=== PATIENT | male | born 1995 | race Caucasian/White ===

== ENCOUNTER 2020-11-11 19:31 | Emergency (ER) | payer OTHER ==
[~2020-11-11] VITALS: Ht 182.9 cm; Wt 74.8 kg
--- NOTE | 2020-11-11 19:40 | NUR ---
C/O L MIDDLE FINGER AVULSION WHILE WASHING DISHES. TDAP NOT UPDATED. MINIMAL BLEEDING
--- NOTE | 2020-11-11 20:03 | NUR ---
NINOSKA PETTY at bed side
[2020-11-11] MEDS ORDERED: GELATIN SPONGE,ABSORBABLE 1 SPONGE SPONGE TP ONE ×2 (20:05→20:30)
[2020-11-11] MEDS ORDERED: TDAP [DIPH/PERTUSSIS/TET] 0.5 ML VIAL IM ONE ×2 (20:10→20:30)
[2020-11-11 20:38] VITALS: BP 119/79
--- NOTE | 2020-11-11 20:44 | NUR ---
PT IS MEDICALLY STABLE FOR D/C. DRESSING ON R MIDDLE FINGER REMAINED C/D/I. NO BLEEDING NOTED. Patient discharged to home in stable condition. Written and verbal after care instructions given. Patient verbalizes understanding of instruction.
== END 2020-11-11 20:45 | disposition home or self-care (01) ==
LOC: ER 19:33
DX: S61.203A Unspecified open wound of left middle finger without damage to nail, initial encounter (principal); W26.0XXA Contact with knife, initial encounter; Y93.89 Activity, other specified; Y92.89 Other specified places as the place of occurrence of the external cause; Y99.8 Other external cause status
CPT/HCPCS: 90715

== ENCOUNTER 2020-11-15 14:19 | Emergency (ER) | payer OTHER ==
[~2020-11-15] VITALS: Ht 182.9 cm; Wt 74.8 kg
[2020-11-15 14:30] VITALS: BP 128/71
--- NOTE | 2020-11-15 14:33 | NUR ---
The patient bibs for left middle finger wound check. The patient is alert and oriented x4. Denies pain. Denies any numbness/tingling. Will continue to monitor the patient.
[2020-11-15] MEDS ORDERED: BACI/NEOM/POLY B OINT PKT 1 UDPKT PACKET TP ONE (16:30)
[2020-11-15] MEDS ORDERED: BACI/NEOM/POLY B OINT PKT 1 UDPKT PACKET ONE (16:37)
--- NOTE | 2020-11-15 16:42 | NUR ---
Patient discharged to home in stable condition. Written and verbal after care instructions given. Patient verbalizes understanding of instruction. The patient left ER in stable condition.
== END 2020-11-15 16:43 | disposition home or self-care (01) ==
LOC: ER 14:21
DX: S61.203A Unspecified open wound of left middle finger without damage to nail, initial encounter (principal); X58.XXXA Exposure to other specified factors, initial encounter; Y93.89 Activity, other specified; Y92.89 Other specified places as the place of occurrence of the external cause; Y99.8 Other external cause status